=== PATIENT | female | born 1970 | race Caucasian/White ===

== ENCOUNTER 2019-09-15 11:23 | Emergency (ER) | payer MEDICAID, OTHER ==
[~2019-09-15] VITALS: Ht 167.6 cm; Wt 113.4 kg
[~2019-09-15 11:23] MED LIST: VIC PO
[2019-09-15 11:24] VITALS: BP 126/81
--- NOTE | 2019-09-15 11:31 | NUR ---
PT AMBULATED TO BED 11.
--- NOTE | 2019-09-15 11:45 | NUR ---
DR. SALGADO EVALUATING PATIENT AT BEDSIDE.
--- NOTE | 2019-09-15 12:00 | NUR ---
PATIENT PRESENTS TO ED WITH c/o rt leg pain starting at the knee that radiates to toes x 1 wk. Pt denies any trauma or injury. Pt states pain level of 8/10 and describes pain as "persisent cramping". Pt reports swelling in right leg and states that she occasionally feels SOB with walking but thinks this is due to the pain while walking. pt DENIES N/V/D; SKIN IS PINK/WARM/DRY; AAOX4 WITH EVEN AND STEADY GAIT with a mild limp; PT DENIES ANY FEVER, CP, OR COUGH AT THIS TIME; VSS; PATIENT POSITIONED FOR COMFORT; HOB ELEVATED; BEDRAILS UP X1; BED DOWN. hx-DM, HTN, chronic shoulder pain, rx- metformin, toradol, lipitor, tramadol, zanaflex, lasix NKA
[2019-09-15 12:11] LABS: BASOPHILS % (AUTO) 0.5 % (0.0-2.0); EOSINOPHILS # (AUTO) 0.2 K/uL (0-0.4); EOSINOPHILS % (AUTO) 2.4 % (0.0-4.0); HEMATOCRIT 40.6 % (36-48); HEMOGLOBIN 13.4 g/dL (12.0-16.0); LYMPHOCYTES # (AUTO) 2.9 K/uL (2.5-16.5); LYMPHOCYTES % (AUTO) 34.7 % (20.5-51.1); MEAN CORPUSCULAR HEMOGLOBIN 29 pg (27-31); MEAN CORPUSCULAR HGB CONC 33 g/dL (33-37); MEAN CORPUSCULAR VOLUME 88.7 fL (80-94); MONOCYTES # (AUTO) 0.6 K/uL (0.8-1.0); MONOCYTES % (AUTO) 6.8 % (1.7-9.3); NEUTROPHILS # (AUTO) 4.7 K/uL (1.8-7.7); NEUTROPHILS % (AUTO) 55.6 % (42.2-75.2); PLATELET COUNT (AUTO) 320 K/uL (140-450); RED BLOOD CELL COUNT(AUTO) 4.58 MIL/uL (4.20-5.40); RED CELL DISTRIBUTION WIDTH 13.8 % (11.6-13.7); WHITE BLOOD COUNT (AUTO) 8.4 K/uL (4.8-10.8)
--- NOTE | 2019-09-15 12:25 | NUR ---
X RAY AT BEDSIDE
--- NOTE | 2019-09-15 12:31 | NUR ---
ULTRASOUND AT BEDSIDE.
[2019-09-15 13:13] LABS: POTASSIUM 4.1 mmol/L (3.5-5.1)
[2019-09-15 13:14] LABS: ANION GAP 14.8 (8-16); CARBON DIOXIDE 25.3 mmol/L (21-32); CREATININE 0.7 mg/dL (0.6-1.3); TOTAL BILIRUBIN 0.2 mg/dL (0.0-1.0)
[2019-09-15 13:15] LABS: ALBUMIN 3.3 g/dL (3.4-5.0)
[2019-09-15] MEDS ORDERED: MORPHINE SULFATE 4 MG/ML SYR IVP ONE (13:35)
[2019-09-15] MEDS ORDERED: ONDANSETRON 4 MG/2 ML VIAL IVP ONE (13:35)
--- NOTE | 2019-09-15 14:35 | NUR ---
pt returned from ct via [facility]
--- NOTE | 2019-09-15 14:35 | NUR ---
PT RETURNED FROM CT
[2019-09-15] MEDS ORDERED: KETOROLAC 15 MG/ML VIAL IVP ONE (15:55)
--- NOTE | 2019-09-15 17:59 | NUR ---
PT RESTING ON BED USING CELLPHONE.
--- NOTE | 2019-09-15 18:23 | NUR ---
Patient discharged with v/s stable. Written and verbal after care instructions given and explained. Patient alert, oriented and verbalized understanding of instructions. Ambulatory with steady gait. All questions addressed prior to discharge. ID band removed. Patient advised to follow up with PMD. Rx of MELOXICAM given. Patient educated on indication of medication including possible reaction and side effects. Opportunity to ask questions provided and answered.
[2019-09-15 18:25] VITALS: BP 128/77
== END 2019-09-15 18:23 | disposition home or self-care (01) ==
LOC: MED 11:23
DX: S86.811A Strain of other muscle(s) and tendon(s) at lower leg level, right leg, initial encounter (principal); M76.891 Other specified enthesopathies of right lower limb, excluding foot; R07.89 Other chest pain; R06.02 Shortness of breath; E11.9 Type 2 diabetes mellitus without complications; I10 Essential (primary) hypertension; Z90.710 Acquired absence of both cervix and uterus; Z79.899 Other long term (current) drug therapy; Z85.3 Personal history of malignant neoplasm of breast; X58.XXXA Exposure to other specified factors, initial encounter; Y93.89 Activity, other specified; Y92.89 Other specified places as the place of occurrence of the external cause; Y99.8 Other external cause status
CPT/HCPCS: 36415; 71045; 71275; 80053; 81002; 81025; 82948; 84484; 84702; 85025; 93971; 96374; 96375; 99284; J1885; J2270; J2405; Q0092; Q9967